=== PATIENT | female | born 1950 | race African-American/Black ===

== ENCOUNTER 2017-04-10 23:23 | Emergency (ER) | payer MEDICARE, MEDICAID ==
[~2017-04-10] VITALS: Ht 170.2 cm; Wt 79.5 kg
[~2017-04-10 23:23] MED LIST: AMLO-511 PO; BENZ1TAB10 PO; FLUP10 PO; RIVA20TA PO; TRAZ-144 PO
[2017-04-10 23:30] VITALS: BP 132/90
[2017-04-10] MEDS ORDERED: HYDR25TA PO (23:34)
== END 2017-04-11 00:12 | disposition left against medical advice (07) ==
LOC: EMS 23:25
DX: Z76.0 Encounter for issue of repeat prescription (principal); K21.9 Gastro-esophageal reflux disease without esophagitis; I10 Essential (primary) hypertension; F17.210 Nicotine dependence, cigarettes, uncomplicated; Z53.21 Procedure and treatment not carried out due to patient leaving prior to being seen by health care provider

== ENCOUNTER 2018-10-14 00:41 | Emergency (ER) | payer MEDICARE, MEDICAID ==
[~2018-10-14 00:41] MED LIST changes: -AMLO-511 PO; +HYDR25TA PO; -TRAZ-144 PO; +TRAZ-252 PO
== END 2018-10-14 01:21 | disposition left against medical advice (07) ==
LOC: EMS 00:43
DX: Z53.21 Procedure and treatment not carried out due to patient leaving prior to being seen by health care provider (principal)

== ENCOUNTER 2018-10-15 00:29 | Inpatient (IN) | payer MEDICARE, MEDICAID ==
[~2018-10-15] VITALS: Ht 170.2 cm; Wt 73.2 kg
[2018-10-15 01:19] LABS: APPEARANCE,URINE CLOUDY (CLEAR); BILIRUBIN,URINE NEGATIVE (NEGATIVE); GLUCOSE, URINE (UA) NEGATIVE (NEGATIVE); KETONES,URINE NEGATIVE (NEGATIVE); LEUKOCYTE ESTERASE ,URINE NEGATIVE (NEGATIVE); NITRATE,URINE NEGATIVE (NEGATIVE); OCCULT BLOOD,URINE NEGATIVE (NEGATIVE); PROTEIN,URINE POS 1+ (NEGATIVE)
[2018-10-15 01:24] LABS: AMPHET/METH SCREEN,URINE NEGATIVE (NEGATIVE); BARBITURATE SCREEN, URINE NEGATIVE (NEGATIVE); BENZODIAZEPINES SCREEN,URINE NEGATIVE (NEGATIVE); CANNABINOID SCREEN,URINE NEGATIVE (NEGATIVE); COCAINE SCREEN,URINE NEGATIVE (NEGATIVE); METHADONE SCREEN, URINE NEGATIVE (NEGATIVE); OPIATE SCREEN,URINE NEGATIVE (NEGATIVE); PHENCYCLIDINE SCREEN,URINE NEGATIVE (NEGATIVE)
[2018-10-15 01:36] LABS: BASOPHILS % (AUTO) 0.7 % (0.0-2.0); EOSINOPHILS % (AUTO) 1.7 % (1.0-6.0); HEMATOCRIT 35.8 % (36-46); HEMOGLOBIN 11.9 g/dL (12.0-16.0); LYMPHOCYTES # (AUTO) 2.3 K/uL (1.0-4.8); LYMPHOCYTES % (AUTO) 42.7 % (22.0-44.0); MEAN CORPUSCULAR HEMOGLOBIN 29.8 pg (26.0-34.0); MEAN CORPUSCULAR HGB CONC 33.2 G/dL (31.0-37.0); MEAN CORPUSCULAR VOLUME 90 fL (80-100); MONOCYTES # (AUTO) 0.5 K/uL (0.1-1.0); MONOCYTES % (AUTO) 9.5 % (2.0-9.0); NEUTROPHILS # (AUTO) 2.5 K/uL (1.8-7.7); NEUTROPHILS % (AUTO) 45.4 % (40.0-70.0); PLATELET COUNT (AUTO) 317 K/uL (150-450); RED BLOOD CELL COUNT(AUTO) 3.99 MIL/uL (4.00-5.20); RED CELL DISTRIBUTION WIDTH 14.6 % (11.5-14.5)
[2018-10-15 01:43] LABS: ANION GAP 7 mmol/L (8-16); CALCIUM, TOTAL 9.4 mg/dL (8.8-10.5); CARBON DIOXIDE 28 mmol/L (22-29); CHLORIDE 105 mmol/L (98-107); CREATININE 1.06 mg/dL (0.60-1.30); GLOMERULAR FILTR. RATE CALC > 60 mL/min (>60); GLUCOSE,RANDOM 89 mg/dL (70-110); POTASSIUM 3.2 mmol/L (3.5-5.1); SODIUM SERUM 140 mmol/L (136-145); UREA NITROGEN, BLOOD 9 mg/dL (7-18)
[2018-10-15 01:49] LABS: ALANINE AMINOTRANSFERASE 28 U/L (12-78); ALBUMIN 3.4 g/dL (3.4-5.0); ALKALINE PHOSPHATASE 54 U/L (46-116); ASPARTATE AMINOTRANSFERASE 25 U/L (15-37); BILIRUBIN,TOTAL 0.6 mg/dL (0.1-1.0); LIPASE 73 U/L (73-393); TOTAL PROTEIN, SERUM 6.9 g/dL (6.4-8.2)
[2018-10-15] MEDS: LORazepam 2 MG TABLET PO PRN (03:30)
[2018-10-15] MEDS ORDERED: HALOPERIDOL 5 MG TABLET PO PRN (03:30)
[2018-10-15] MEDS ORDERED: POTASSIUM CHLORIDE 20 MEQ ER TABLET PO ONE (03:30)
[2018-10-15 04:40] VITALS: BP 147/95
[2018-10-15] MEDS ORDERED: PNEUMOCOCCAL VACCINE POLYVALENT 0.5 ML VIAL [PPSV23] IM ONE (05:15)
[2018-10-15 13:00] VITALS: BP 111/64
[2018-10-15] MEDS ORDERED: CloNIDine HCL 0.1 MG TABLET PO PRN (13:15)
[2018-10-15] MEDS ORDERED: MAGNESIUM HYDROXIDE SUSPENSION 30 ML UDCUP PO PRN (13:15)
[2018-10-15] MEDS ORDERED: IBUPROFEN 400 MG TABLET PO PRN (13:15)
[2018-10-15] MEDS ORDERED: ACETAMINOPHEN 325 MG TABLET PO PRN (13:15)
[2018-10-15] MEDS ORDERED: DOCUSATE SODIUM 100 MG CAPSULE PO PRN (13:15)
[2018-10-15] MEDS ORDERED: NICOTINE 14 MG/24 HOUR PATCH TD PRN (13:15)
[2018-10-15] MEDS ORDERED: ONDANSETRON HCL 4 MG TABLET PO PRN (13:15)
[2018-10-15] MEDS ORDERED: LOPERAMIDE HCL 2 MG CAPSULE PO PRN (13:15)
[2018-10-15] MEDS ORDERED: GuaiFENesin/D-METHORPHAN [SUGAR-FREE] 200-20MG/10 ML SYRUP UDCUP PO PRN (13:15)
[2018-10-15] MEDS ORDERED: MAG HYDROX/AL HYDROX/SIMETH ES 30 ML SUSPENSION UDCUP PO PRN (13:15)
[2018-10-15] MEDS ORDERED: ALBUTEROL SULFATE HFA 90 MCG/PUFF 8 GM INHALER IH PRN (13:15)
[2018-10-15] MEDS ORDERED: PETROLATUM,WHITE 28 GM JELLY TP PRN (13:15)
[2018-10-15] MEDS: BENZTROPINE MESYLATE 1 MG TABLET PO SCH (16:50)
[2018-10-15] MEDS: FluPHENAZine HCL 10 MG TABLET PO SCH (20:23)
[2018-10-15] MEDS: TraZODone HCL 50 MG TABLET PO SCH (20:24)
[2018-10-16] VITALS: BP 134/92
[2018-10-16] MEDS: ZOLPIDEM TARTRATE 10 MG TABLET PO PRN ×2 (00:01→20:22)
[2018-10-16] MEDS: LORazepam 2 MG TABLET PO PRN (00:02)
[2018-10-16] MEDS: HYDROCHLOROTHIAZIDE 25 MG TABLET PO SCH (08:53)
[2018-10-16] MEDS: BENZTROPINE MESYLATE 1 MG TABLET PO SCH ×2 (08:53→16:18)
[2018-10-16 09:04] VITALS: BP 121/81
[2018-10-16 16:05] VITALS: BP 135/78
[2018-10-16] MEDS: FluPHENAZine HCL 10 MG TABLET PO SCH (20:19)
[2018-10-16] MEDS: TraZODone HCL 50 MG TABLET PO SCH (20:23)
[2018-10-17] MEDS: HYDROCHLOROTHIAZIDE 25 MG TABLET PO SCH (08:26)
[2018-10-17] MEDS: BENZTROPINE MESYLATE 1 MG TABLET PO SCH ×2 (08:26→16:29)
[2018-10-17 08:41] VITALS: BP 126/90
[2018-10-17 19:32] VITALS: BP 141/91
[2018-10-17] MEDS: TraZODone HCL 50 MG TABLET PO SCH (21:00)
[2018-10-17] MEDS: FluPHENAZine HCL 10 MG TABLET PO SCH (21:00)
[2018-10-18] MEDS: ZOLPIDEM TARTRATE 10 MG TABLET PO PRN (01:10)
[2018-10-18] MEDS: HYDROCHLOROTHIAZIDE 25 MG TABLET PO SCH (08:23)
[2018-10-18] MEDS: BENZTROPINE MESYLATE 1 MG TABLET PO SCH ×2 (08:23→16:30)
[2018-10-18 08:28] VITALS: BP 133/84
[2018-10-18] MEDS: FluPHENAZine HCL 5 MG TABLET PO SCH (09:00)
[2018-10-18 16:40] VITALS: BP 151/90
[2018-10-18] MEDS: TraZODone HCL 50 MG TABLET PO SCH ×2 (21:00→21:51)
[2018-10-18] MEDS: FluPHENAZine HCL 10 MG TABLET PO SCH ×2 (21:00→21:51)
[2018-10-19 01:00] VITALS: BP 136/89
[2018-10-19] MEDS: ZOLPIDEM TARTRATE 10 MG TABLET PO PRN (01:02)
[2018-10-19] MEDS: LORazepam 2 MG TABLET PO PRN (01:02)
[2018-10-19 08:31] VITALS: BP 134/96
[2018-10-19] MEDS: FluPHENAZine HCL 5 MG TABLET PO SCH (08:32)
[2018-10-19] MEDS: BENZTROPINE MESYLATE 1 MG TABLET PO SCH ×2 (08:32→16:16)
[2018-10-19] MEDS: HYDROCHLOROTHIAZIDE 25 MG TABLET PO SCH (08:32)
[2018-10-19] MEDS: FAMOTIDINE 20 MG TABLET PO SCH (16:16)
[2018-10-19 19:32] VITALS: BP 137/77
[2018-10-19] MEDS: FluPHENAZine HCL 10 MG TABLET PO SCH (21:00)
[2018-10-19] MEDS: TraZODone HCL 50 MG TABLET PO SCH (21:00)
[2018-10-20] MEDS: HYDROCHLOROTHIAZIDE 25 MG TABLET PO SCH (08:23)
[2018-10-20] MEDS: FAMOTIDINE 20 MG TABLET PO SCH ×2 (08:23→16:58)
[2018-10-20] MEDS: FluPHENAZine HCL 5 MG TABLET PO SCH (08:23)
[2018-10-20] MEDS: BENZTROPINE MESYLATE 1 MG TABLET PO SCH ×2 (08:23→16:59)
[2018-10-20 09:00] VITALS: BP 139/86
[2018-10-20 17:00] VITALS: BP 143/70
[2018-10-20] MEDS: FluPHENAZine HCL 10 MG TABLET PO SCH (20:19)
[2018-10-20] MEDS: TraZODone HCL 50 MG TABLET PO SCH (20:19)
[2018-10-20] MEDS: LORazepam 2 MG TABLET PO PRN (20:20)
[2018-10-21 08:00] VITALS: BP 127/91
[2018-10-21] MEDS: HYDROCHLOROTHIAZIDE 25 MG TABLET PO SCH (09:29)
[2018-10-21] MEDS: FAMOTIDINE 20 MG TABLET PO SCH ×2 (09:29→16:32)
[2018-10-21] MEDS: FluPHENAZine HCL 5 MG TABLET PO SCH (09:30)
[2018-10-21] MEDS: BENZTROPINE MESYLATE 1 MG TABLET PO SCH ×2 (09:30→16:32)
[2018-10-21 16:52] VITALS: BP 127/83
[2018-10-21] MEDS ORDERED: LORazepam 2 MG/ML VIAL IM ONE (17:15)
[2018-10-21] MEDS ORDERED: HALOPERIDOL LACTATE 5 MG/ML VIAL IM ONE (17:15)
[2018-10-21] MEDS ORDERED: DiphenhydrAMINE HCL 50 MG/ML VIAL IM ONE (17:15)
[2018-10-21] MEDS: TraZODone HCL 50 MG TABLET PO SCH (21:00)
[2018-10-21] MEDS: FluPHENAZine HCL 10 MG TABLET PO SCH (21:00)
[2018-10-22] MEDS: BENZTROPINE MESYLATE 1 MG TABLET PO SCH ×2 (08:41→18:00)
[2018-10-22] MEDS: FluPHENAZine HCL 5 MG TABLET PO SCH (08:42)
[2018-10-22] MEDS: FAMOTIDINE 20 MG TABLET PO SCH ×2 (08:42→18:00)
[2018-10-22] MEDS: HYDROCHLOROTHIAZIDE 25 MG TABLET PO SCH (09:00)
[2018-10-22 09:09] VITALS: BP 125/75
[2018-10-22] MEDS: FluPHENAZine HCL 10 MG TABLET PO SCH (20:34)
[2018-10-22] MEDS: TraZODone HCL 50 MG TABLET PO SCH (21:00)
[2018-10-23] MEDS: LORazepam 2 MG TABLET PO PRN (00:53)
[2018-10-23 00:56] VITALS: BP 120/81
[2018-10-23 08:38] VITALS: BP 142/85
[2018-10-23] MEDS: HYDROCHLOROTHIAZIDE 25 MG TABLET PO SCH (09:00)
[2018-10-23] MEDS: BENZTROPINE MESYLATE 1 MG TABLET PO SCH ×2 (09:43→16:17)
[2018-10-23] MEDS: FluPHENAZine HCL 5 MG TABLET PO SCH (09:43)
[2018-10-23] MEDS: FAMOTIDINE 20 MG TABLET PO SCH ×2 (09:43→16:17)
[2018-10-23 17:06] VITALS: BP 129/92
[2018-10-23] MEDS: FluPHENAZine HCL 10 MG TABLET PO SCH (20:53)
[2018-10-23] MEDS: TraZODone HCL 50 MG TABLET PO SCH (20:59)
[2018-10-24] MEDS: FluPHENAZine HCL 5 MG TABLET PO SCH (08:20)
[2018-10-24] MEDS: LORazepam 2 MG TABLET PO PRN (08:20)
[2018-10-24] MEDS: BENZTROPINE MESYLATE 1 MG TABLET PO SCH ×2 (08:21→16:41)
[2018-10-24] MEDS: FAMOTIDINE 20 MG TABLET PO SCH ×2 (08:21→16:42)
[2018-10-24 08:54] VITALS: BP 139/68
[2018-10-24] MEDS: HYDROCHLOROTHIAZIDE 25 MG TABLET PO SCH (09:00)
[2018-10-24 17:00] VITALS: BP 134/92
[2018-10-24] MEDS: TraZODone HCL 50 MG TABLET PO SCH (20:19)
[2018-10-24] MEDS: FluPHENAZine HCL 10 MG TABLET PO SCH (20:19)
[2018-10-25] MEDS: BENZTROPINE MESYLATE 1 MG TABLET PO SCH ×2 (08:58→16:07)
[2018-10-25] MEDS: FluPHENAZine HCL 5 MG TABLET PO SCH (08:58)
[2018-10-25] MEDS: FAMOTIDINE 20 MG TABLET PO SCH ×2 (08:58→16:07)
[2018-10-25] MEDS: HYDROCHLOROTHIAZIDE 25 MG TABLET PO SCH (08:59)
[2018-10-25 11:25] VITALS: BP 132/77
[2018-10-25 16:13] VITALS: BP 141/75
[2018-10-25] MEDS: TraZODone HCL 50 MG TABLET PO SCH (21:00)
[2018-10-25] MEDS: FluPHENAZine HCL 10 MG TABLET PO SCH (21:42)
[2018-10-26 08:45] VITALS: BP 120/76
[2018-10-26] MEDS: HYDROCHLOROTHIAZIDE 25 MG TABLET PO SCH (09:00)
[2018-10-26] MEDS: FluPHENAZine HCL 5 MG TABLET PO SCH (09:37)
[2018-10-26] MEDS: BENZTROPINE MESYLATE 1 MG TABLET PO SCH (09:37)
[2018-10-26] MEDS: FAMOTIDINE 20 MG TABLET PO SCH (09:37)
[2018-10-26] MEDS: LORazepam 2 MG TABLET PO PRN (09:37)
[2018-10-26] MEDS ORDERED: FLUP5 PO (12:47)
[2018-10-26] MEDS ORDERED: FAMO20 PO (12:48)
== END 2018-10-26 15:00 | disposition home or self-care (01) | DRG 885 ==
LOC: EMS 00:32 → 3EX 03:00
PROVIDERS: ADMIT Psychiatry & Neurology Child & Adolescent Psychiatry; ATTEND Psychiatry & Neurology Child & Adolescent Psychiatry
DX: F25.0 Schizoaffective disorder, bipolar type (principal); R45.851 Suicidal ideations; I10 Essential (primary) hypertension; K21.9 Gastro-esophageal reflux disease without esophagitis; F17.210 Nicotine dependence, cigarettes, uncomplicated; E87.6 Hypokalemia; D64.9 Anemia, unspecified; R45.850 Homicidal ideations; R45.87 Impulsiveness; Z71.6 Tobacco abuse counseling; Z59.0 Homelessness
CPT/HCPCS: 83540; 83550; 84132; G0378; G0480; J1200; J1630; J2060